=== PATIENT | female | born 2005 | race Caucasian/White ===

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

== ENCOUNTER → 2023-11-06 09:07 | Outpatient (BNVA) | payer OTHER, SELFPAY | PROVIDERS: PCP Electrodiagnostic Medicine; Visit Provider Family Medicine | DX: R55 Syncope and collapse (principal); E03.9 Hypothyroidism, unspecified | CPT/HCPCS: 80053; 82607; 84443; 85025 ==